=== PATIENT | female | born 1930 | race African-American/Black ===

== ENCOUNTER → 2016-09-11 | Day surgery (SDC) | payer MEDICARE, BC ==
--- NOTE | 2016-09-09 11:33 | Opthalmology H&P ---
Ophthalmology H&P H&P Chief Complaint: decreased vision in right eye HPI Vision Affects Ability to: read, focus/use eyes together, manage personal affairs HPI Narrative blurry vision Exam Visual Acuity: OD: 20/100 OS; 20/50 Tension: OD: 10 OS; 10 Eye Exam: normal OU: anterior chambers, corneas, external exam, fundus exam - CD: 0.04 OU, levator function, marginal reflex distance, palpebral fissure-width , findings: fundus exam - CD: 0.04 OU, lens - OD: ns OS; ns Assessment/Plan Diagnosis: (1) Cataract Treatment Plan: cataract extraction w/ lens implant Goals of Treatment: improvement of vision, enhance quality of life Attestation Attestation The risks and benefits of the surgery as well as alternative procedures were explained to the patient in detail. ANNE MOROCHO Sep 09, 2016 11:32
--- NOTE | 2016-09-09 15:25 | Pre-Procedure Note/Attestation ---
Pre-Procedure Note/Attestation Complete Prior to Procedure Planned Procedure: right Procedure Narrative: phaco with IOL Indications for Procedure Pre-Operative Diagnosis: cataract Attestation I attest that I discussed the nature of the procedure; its benefits; risks and complications; and alternatives (and the risks and benefits of such alternatives ), prior to the procedure, with the patient (or the patient's legal loan servicing representative). I attest that, if there was a reasonable possibility of needing a blood transfusion, the patient (or the patient's legal loan servicing representative) was given the [facility] standardized written summary, pursuant to the [place] Blood Safety Act ([place] Health and Safety Code # 1645, as amended). I attest that I re-evaluated the patient just prior to the surgery and that there has been no change in the patient's H&P, except as documented below: ANNE MOROCHO Sep 09, 2016 15:25
[2016-09-11] VITALS (7 sets, daily range): BP systolic 119–165; BP diastolic 72–99
[~2016-09-11] VITALS: Ht 152.4 cm; Wt 72.6 kg
[~2016-09-11] MED LIST: Akten 3.5% 1ml Btl RIGHT EYE ONE; BSS 15ml BTL ONE; BSS 500ml btl ONE; Dexamethasone 4mg/ml vial ONE; EPINEPHrine 1mg/1ml Amp ONE; FUROSEMIDE20 M1 ORAL; LOTENSIN20 MG ORAL; LR 1000ml 1,000 ML IVLG SCH; LR 1000ml ONE; Lidocaine 1% MPF 10mg/ml 5ml ONE; METOPROLOL TART25 MG ORAL; Maxitrol Opth Oint 3.5gm ONE; NORVASC2.5 MG ORAL; NS Irrig 1000ml ONE; PROTONIX40 MG ORAL; Povidone-Iodine 5% opth solution ONE; Pred Forte 1% Opth Susp 1ml ONE; Propofol 10mg/ml 20ml IV ONE; Sodium Hyaluronate 14 mg/ml 0.85ml ONE; Sterile Water Irrig 1000ml IRRIG ONE; fentaNYL 100 mcg/2 mL IV ONE
--- NOTE | 2016-09-11 07:54 | Immediate Post-Op Evaluation ---
Immediate Post-Op Evalulation Immediate Post-Op Evalulation Procedure: Cataract extract w IOL OD Date of Evaluation: Sep 11, 2016 Time of Evaluation: 10:45 IV Fluids: 300ml Blood Products: 0 Estimated Blood Loss: 0 Urinary Output: nm Blood Pressure Systolic: 156 Blood Pressure Diastolic: 97 Pulse Rate: 75 Respiratory Rate: 16 O2 Sat by Pulse Oximetry: 94 Temperature (Fahrenheit): 97.3 Pain Score (1-10): 0 Nausea: No Vomiting: No Patient Status: reacts, patent, none Drug: none HARMEET POWER M.D. Sep 11, 2016 07:54
--- NOTE | 2016-09-11 07:55 | 48 Hour Post Anesthesia Eval ---
Post Anesthesia Evaluation Procedure: Cataract extract w IOL OD Date of Evaluation: Sep 11, 2016 Time of Evaluation: 11:05 Blood Pressure Systolic: 149 0: 94 Pulse Rate: 72 Respiratory Rate: 16 Temperature (Fahrenheit): 97.3 O2 Sat by Pulse Oximetry: 97 Airway: patent Nausea: No Vomiting: No Pain Intensity: 0 Hydration Status: adequate Mental Status/LOC: other - sleepy, arouses easily Post-Anesthesia Complications: none Follow-up care needed: N/A HARMEET POWER M.D. Sep 11, 2016 07:55
[2016-09-11] MEDS: Tropicamide 1% Opth Soln RIGHT EYE SCH ×3 (08:10→08:35)
[2016-09-11] MEDS: Diclofenac Sod 0.1% Op Soln RIGHT EYE SCH ×3 (08:10→08:36)
[2016-09-11] MEDS: Cyclopentolate 1% Opth Sol RIGHT EYE SCH ×3 (08:10→08:35)
[2016-09-11] MEDS: Phenylephrine 10% Opth Soln 5ml RIGHT EYE SCH ×3 (08:10→08:35)
[2016-09-11 09:11] LABS: INR 1.2 (0.9-1.1); PROTHROMBIN TIME 12.4 SEC (9.30-11.50)
--- NOTE | 2016-09-11 10:29 | Anethesia Preoperative Eval ---
Anesthesia Pre-op PMH/ROS General Date of Evaluation: Sep 11, 2016 Time of Evaluation: 09:40 Anesthesiologist: Juan José ASA Score: ASA 3 Mallampati Score Class I : Soft palate, uvula, fauces, pillars visible Class II: Soft palate, uvula, fauces visible Class III: Soft palate, base of uvula visible Class IV: Only hard plate visible Mallampati Classification: Class II Surgeon: Brook Diagnosis: Cataract OD Surgical Procedure: Cataract ext. with IOL OD Family History: no anesthesia problems Allergies: Coded Allergies: SULFA (SULFONAMIDE ANTIBIOTICS) (Verified Allergy, Mild, 09/09/16) Medications: see eMAR Past Medical History Cardiovascular: Reports: HTN Gastrointestinal/Genitourinary: Reports: GERD HEENT: Reports: cataract (R) Anesthesia Pre-op Phys. Exam Physician Exam Last Vital Signs Date Time Temp Pulse Resp B/P Pulse Ox O2 Delivery O2 Flow Rate FiO2 09/11/16 08:17 98.8 71 18 119/72 97 Room Air Constitutional: NAD Neurologic: CN 2-12 intact Cardiovascular: RRR Respiratory: CTA Airway Exam Mallampati Score: Class II Anesthesia Pre-op A/P Labs Coagulation Test 09/11/16 08:40 Prothrombin Time 12.4 SEC (9.30-11.50) H Prothromb Time International Ratio 1.2 (0.9-1.1) H Activated Partial Thromboplast Time 24 SEC (23-33) HARMEET POWER M.D. Sep 11, 2016 10:29
--- NOTE | 2016-09-12 08:48 | Brief Operative Note ---
Immediate Post Operative Note Operative Note Chief Complaint: blurry vision Pre-op Diagnosis: cataract Procedure: Phaco with IOL Post-op Diagnosis: Pseudophakia Post-op Diagnosis: same as pre-op Findings: consistent w/pre-op dx studies Surgeon: Brook Anesthesiologist: Juan José Anesthesia: MAC Specimen: none Complications: none Estimated Blood Loss: none Drains: none Implant(s) used?: Yes ANNE MOROCHO Sep 12, 2016 08:48
--- NOTE | 2016-09-14 11:07 | Operative Note - PDOC ---
Operative Note Operative Note Date of Operation/Procedure: Sep 11, 2016 Chief Complaint: blurry vision Pre-op Diagnosis: cataract Procedure: Phaco with IOL Post-op Diagnosis: Pseudophakia Post-op Diagnosis: same as pre-op Operative Findings: consistent w/pre-op dx studies Surgeon: Brook Anesthesiologist: Juan José Anesthesia: MAC Specimen: none Complications: none Estimated Blood Loss: none Drains: none Implant(s) used?: Yes Indications for Procedure cataract Description of Procedure This patient has been complaining visually significant cataract in the affected eye with the best corrected visual acuity under moderate glare conditions worse. The patient complains of difficulties with glare in performing activities of daily living and wants to manage personal affairs with comfort and accuracy and see well enough to move with safety at home and outdoors. ~~~ The risks, benefits and alternatives of the procedure were discussed with the patient in the office prior to scheduling surgery. All questions from the patient were answered after the surgical procedure was explained in detail. The risks of the procedure as explained to the patient include, but are not limited to, pain, infection, bleeding, loss of vision, retinal detachment, need for further surgery, loss of lens nucleus, double vision, etc. Alternative procedures were discussed which include, to do nothing or seek a second opinion. Informed consent for this procedure was obtained from the patient. The patient was referred to a primary care physician for a cardiopulmonary clearance prior to surgery, after proper evaluation was done patient was properly scheduled for outpatient surgery. The patient was brought to the operating room where the anesthesiologist established I.V. lines and cardiac monitoring leads. Mild intravenous sedation was administered.~~ The patient was then prepared with a 5% solution of povidone -iodine to the conjunctival fornix and lashes, and a 10% solution of povidone- iodine to the lids and periorbital skin. The patient was then draped in the usual sterile fashion. A lid speculum was then placed in the operative eye. A keratome blade was then used to create a biplanar incision into the anterior chamber. Viscoelastics was then instilled into the anterior chamber. A capsulorrhexis was then fashioned with an utrata forceps. BSS and a cannula were then used to hydrodissect and hydro delineate the lens. Paracentesis incision was made at 3 o'clock with sharp blade. The phacoemulsification unit, after being properly adjusted~ and tested, was then used to emulsify the nucleus. Residual cortical material was aspirated with the irrigation and aspiration unit. Healon was then instilled into the anterior chamber. The corneal wound was then enlarged to the size of the optic with the francia keratome blade. The intraocular lens was then inspected for right~ power and size~ and thought to be satisfactory. Then the lens was gently placed in the capsular bag. Positioning within the capsular bag was confirmed by direct visualization. Viscoelastics~ was removed from the anterior chamber using the irrigation and aspiration unit. The corneal wound was then tested for leaks and none were found. The lid speculum were then removed. Sponge and needle counts were correct. An eye patch and shield were placed over the operative eye. The patient was taken to the recovery room in stable condition. There were no complications. The patient tolerated the procedure well. The patient was then transferred to the ambulatory surgery unit in stable and satisfactory condition , was given detailed written instructions and asked to follow up~ in the office the next day. ~ ~ Dictated & Transcribed: Abraham Juan Jose ALCANTARA JAMES Sep 14, 2016 11:07
== END | disposition home or self-care (01) ==
LOC: SUR 06:30
DX: H26.9 Unspecified cataract (principal); I10 Essential (primary) hypertension; E11.9 Type 2 diabetes mellitus without complications; K21.9 Gastro-esophageal reflux disease without esophagitis; E66.9 Obesity, unspecified; I49.9 Cardiac arrhythmia, unspecified; I87.2 Venous insufficiency (chronic) (peripheral); Z85.3 Personal history of malignant neoplasm of breast; Z90.10 Acquired absence of unspecified breast and nipple; Z88.2 Allergy status to sulfonamides
CPT/HCPCS: 36415; 66984; 82962; 85610; 85730; J0171; J1100; J2704; J3010; J3370; J7120; V2632; 94003; 94150